=== PATIENT | male | born 1975 | race Caucasian/White ===

== ENCOUNTER 2020-06-10 11:51 | Emergency (ER) | payer SELFPAY ==
[2020-06-10 12:03] VITALS: BP 120/77; PULSE 76; TEMP 98; BMI 24.0
[2020-06-10] MEDS ORDERED: ACETAMINOPHEN 325 MG TABLET (FP) PO ONE (12:26)
[2020-06-10] MEDS ORDERED: LIDOCAINE 5% TOPICAL PATCH TP ONE (12:27)
[2020-06-10] MEDS ORDERED: LIDOCAINE 5% TOPICAL PATCH ONE (12:35)
[2020-06-10] MEDS ORDERED: ACETAMINOPHEN 325 MG TABLET (FP) ONE (12:35)
== END 2020-06-10 14:10 | disposition home or self-care (01) ==
LOC: JERFT 11:51
DX: S93.412A Sprain of calcaneofibular ligament of left ankle, initial encounter (principal); R07.82 Intercostal pain; W19.XXXA Unspecified fall, initial encounter
CPT/HCPCS: 71046-TC-FY; 71101-TC-LT-FY; 73610-TC-LT-FY; 73630-TC-LT; 93005; 93010; 99285-25

== ENCOUNTER 2021-12-30 09:15 | Emergency (ER) | payer OTHER ==
[2021-12-30 09:29] VITALS: BMI 28.3
[2021-12-30] MEDS ORDERED: ACETAMINOPHEN 1000 MG/100 ML BAG IVPB ONE (09:54)
[2021-12-30] MEDS ORDERED: CEFAZOLIN 2 GM in DEXTROSE 5%-WATER - 50 ML IVPB ONE (09:55)
[2021-12-30] MEDS ORDERED: ACETAMINOPHEN INJECTION 100 ML IVPB ONE (10:21)
[2021-12-30] MEDS ORDERED: ceFAZolin SODIUM 1 GM VIAL ONE (10:21)
[2021-12-30] MEDS ORDERED: SODIUM CHLORIDE 0.9% 500 ML INFUS.BAG IV ONE (11:08)
[2021-12-30 13:43] VITALS: BP 114/81; PULSE 67; TEMP 98.1
== END 2021-12-30 13:30 | disposition short-term general hospital (02) ==
LOC: JER 09:15
PROC: 3E0333Z Introduction of Anti-inflammatory into Peripheral Vein, Percutaneous Approach (ICD-10-PCS; principal; 2021-12-30)
PROC: 3E03329 Introduction of Other Anti-infective into Peripheral Vein, Percutaneous Approach (ICD-10-PCS; 2021-12-30)
DX: S62.605B Fracture of unspecified phalanx of left ring finger, initial encounter for open fracture (principal); W29.8XXA Contact with other powered hand tools and household machinery, initial encounter; Y93.H2 Activity, gardening and landscaping
CPT/HCPCS: 0241U-QW; 73140-TC-LT-FY; 99284-25

== ENCOUNTER 2024-02-22 08:53 | Emergency (ER) | payer SELFPAY ==
[2024-02-22 09:02] VITALS: BP 135/84; PULSE 81; RESP 18; TEMP 97.8; BMI 28.3
== END 2024-02-22 14:20 | disposition home or self-care (01) ==
LOC: JERFT 08:53
DX: S02.2XXA Fracture of nasal bones, initial encounter for closed fracture (principal); R04.0 Epistaxis; W20.8XXA Other cause of strike by thrown, projected or falling object, initial encounter
CPT/HCPCS: 70450-TC; 70486-TC; 99284-25

== ENCOUNTER 2024-06-04 01:12 | Inpatient (IN) | payer OTHER ==
[2024-06-04] MEDS ORDERED: FAMOTIDINE 20 MG TABLET ONE (02:35)
[2024-06-04] MEDS ORDERED: POLYETHYLENE GLYCOL (HEALTHYLAX) 3350 17 GM PACKET ONE (02:35)
[2024-06-04] MEDS ORDERED: LACTULOSE 20 GM/30 ML UDC (FOR ORAL USE ONLY) ONE (02:36)
[2024-06-04] MEDS ORDERED: MAG HYDROX/AL HYDROX/SIMETH 30 ML UNIT-DOSE CUP ONE (02:36)
[2024-06-04] MEDS: MAG HYDROX/AL HYDROX/SIMETH 30 ML UNIT-DOSE CUP PO ONE (02:50)
[2024-06-04] MEDS: LACTULOSE 20 GM/30 ML UDC (FOR ORAL USE ONLY) PO ONE (02:50)
[2024-06-04] MEDS: FAMOTIDINE 20 MG TABLET PO ONE (02:50)
[2024-06-04] MEDS: POLYETHYLENE GLYCOL (HEALTHYLAX) 3350 17 GM PACKET PO SCH (02:50)
[2024-06-04] MEDS: MINERAL OIL ENEMA 133 ML ENEMA RC ONE (02:50)
[2024-06-04 05:23] LABS: INR 1.18 (0.83-1.09); PROTHROMBIN TIME (PATIENT) 13.5 SEC (9.7-13.0)
[2024-06-04 05:31] LABS: HEMATOCRIT 34.4 % (35.4-49); HEMOGLOBIN 11.4 GM/dL (11.7-16.9); MCH 31.3 pg (25.7-33.7); MCHC 33.2 g/dl (32.0-35.9); MEAN CELL VOLUME 94.4 fl (80-96); MEAN PLT VOLUME 8.8 fl (7.5-11.1); PLATELET COUNT 424 10^3/uL (134-434); RBC 3.64 M/mm3 (4.00-5.60); RDW 13.8 % (11.9-15.9); WHITE BLOOD COUNT 5.2 K/mm3 (4.0-10.0)
[2024-06-04 06:22] LABS: POTASSIUM 4.1 mmol/L (3.5-5.1)
[2024-06-04 06:25] LABS: BLOOD UREA NITROGEN 5.8 mg/dL (7-18); CALCIUM 8.9 mg/dL (8.5-10.1)
[2024-06-04 06:26] LABS: ALBUMIN 2.6 g/dl (3.4-5.0)
[2024-06-04 06:29] LABS: CREATININE 0.6 mg/dL (0.55-1.3)
[2024-06-04 06:30] LABS: BILIRUBIN,TOTAL 0.7 mg/dL (0.2-1); TOT PROT 7.4 g/dl (6.4-8.2)
[2024-06-04 06:44] LABS: HIV INTERPRETATION NEGATIVE (NEGATIVE)
[2024-06-04] MEDS ORDERED: ACETAMINOPHEN INJECTION 100 ML ONE (11:02)
[2024-06-04] MEDS: ACETAMINOPHEN 1000 MG/100 ML BAG IVPB ONE (11:21)
[2024-06-04] MEDS: CEFOTAXIME SODIUM 2,000 MG in DEXTROSE 5%-WATER - 50 ML IVPB ONE (11:47)
[2024-06-04] MEDS ORDERED: CEFTRIAXONE 2 GM/100 ML BAG IVPB ONE (11:49)
[2024-06-04] MEDS: CEFTRIAXONE 2 GM in DEXTROSE 5%-WATER - 100 ML IVPB ONE (12:00)
[2024-06-04] MEDS ORDERED: LORazepam 2 MG/ML SDV VIAL IVPUSH PRN (12:57)
[2024-06-04] MEDS ORDERED: PIPERACILLIN/TAZOB 3.375 GM 3.375 GM/50 ML BAG IVPB ONE (14:19)
[2024-06-04] MEDS: PIPERACILLIN/TAZOB 3.375 GM 50 ML IVPB SCH (14:26)
[2024-06-04] MEDS ORDERED: VANCOMYCIN 1 GRAM (PRE-DOCKED) 1,000 MG/250 ML BAG IVPB ONE (15:08)
[2024-06-04] MEDS: LACTATED RINGERS SOLUTION 1,000 ML/1,000 ML INFUS.BAG IV SCH (15:18)
[2024-06-04] MEDS: VANCOMYCIN 1 GRAM (PRE-DOCKED) 1,000 MG/200 ML BAG IVPB ONE (15:18)
[2024-06-05 09:24] LABS: HEMATOCRIT 33.7 % (35.4-49); HEMOGLOBIN 11.2 GM/dL (11.7-16.9); MCH 31.6 pg (25.7-33.7); MCHC 33.4 g/dl (32.0-35.9); MEAN CELL VOLUME 94.7 fl (80-96); MEAN PLT VOLUME 8.5 fl (7.5-11.1); PLATELET COUNT 491 10^3/uL (134-434); RBC 3.55 M/mm3 (4.00-5.60); RDW 13.5 % (11.9-15.9); WHITE BLOOD COUNT 5.1 K/mm3 (4.0-10.0)
[2024-06-05 09:45] LABS: POTASSIUM 4.1 mmol/L (3.5-5.1)
[2024-06-05 09:47] LABS: CALCIUM 8.8 mg/dL (8.5-10.1)
[2024-06-05 09:48] LABS: ALBUMIN 2.1 g/dl (3.4-5.0); BLOOD UREA NITROGEN 5.5 mg/dL (7-18)
[2024-06-05 09:51] LABS: CREATININE 0.7 mg/dL (0.55-1.3)
[2024-06-05 09:52] LABS: BILIRUBIN,TOTAL 0.5 mg/dL (0.2-1); TOT PROT 6.3 g/dl (6.4-8.2)
[2024-06-05 10:43] LABS: ANISOCYTOSIS 0; MACROCYTOSIS 0; TARGET CELLS 1+
[2024-06-05] MEDS: HEPARIN NA (PORCINE) 5,000 UNITS/ML 1ML VIAL SQ SCH (11:05)
[2024-06-05] MEDS: PANTOPRAZOLE SODIUM 40 MG VIAL IVPUSH SCH (11:05)
[2024-06-05] MEDS: THIAMINE HCL 200 MG/2 ML VIAL IVPB SCH (11:05)
[2024-06-05] MEDS: FOLIC ACID 1 MG TABLET (FP) PO SCH (11:06)
[2024-06-05 14:19] LABS: EPI CELLS 20 /uL (0-25.1); HYALINE CASTS 1 /uL (0-3.1); URINE APPEARANCE CLEAR; URINE BACTERIA 6 /uL (0-1359); URINE BILIRUBIN 1+ (NEGATIVE); URINE COLOR DK YELLOW; URINE GLUCOSE (UA) NEGATIVE (NEGATIVE); URINE KETONE 2+ (NEGATIVE); URINE LEUK ESTERASE TRACE (NEGATIVE); URINE NITRITE NEGATIVE (NEGATIVE); URINE PROTEIN TRACE (NEGATIVE); URINE RBC 19 /uL (0-23.9); URINE WBC 22 /uL (0-25.8)
[2024-06-05 14:28] LABS: COCAINE, UR NEGATIVE (NEGATIVE); METHADONE, UR NEGATIVE (NEGATIVE); URINE BARBITURATES NEGATIVE (NEGATIVE); URINE BENZODIAZEPINES NEGATIVE (NEGATIVE)
[2024-06-05 14:29] LABS: OPIATES, URI NEGATIVE (NEGATIVE); PHENCYCLIDINE,URINE NEGATIVE (NEGATIVE)
[2024-06-05 14:32] LABS: URINE AMPHETAMINES NEGATIVE (NEGATIVE)
[2024-06-05] MEDS: MULTIVIT INJ. ADULT COMBO WITH VIT K 1 COMBO 10 ML VIAL IV SCH (14:48)
[2024-06-05] MEDS ORDERED: ONDANSETRON 4 MG/2 ML VIAL IVPUSH PRN (17:05)
[2024-06-05] MEDS: PIPERACILLIN/TAZOB 3.375 GM 3.375 GM in DEXTROSE 5%-WATER - 50 ML IVPB SCH (17:26)
[2024-06-05] MEDS: CEFTRIAXONE 2 GM in DEXTROSE 5%-WATER 100 ML IVPB SCH (18:05)
[2024-06-06] MEDS: MULTIVITAMINS (DAILY MVI) TABLET (FP) PO SCH (09:24)
[2024-06-06] MEDS: POLYETHYLENE GLYCOL (HEALTHYLAX) 3350 17 GM PACKET PO SCH (09:25)
[2024-06-06 09:56] LABS: BASO % 1.3 % (0-2.0); EOS % 1.1 % (0-4.5); HEMATOCRIT 35.3 % (35.4-49); HEMOGLOBIN 11.9 GM/dL (11.7-16.9); LYMPH % 7.5 % (8-40); MCH 31.5 pg (25.7-33.7); MCHC 33.7 g/dl (32.0-35.9); MEAN CELL VOLUME 93.6 fl (80-96); MEAN PLT VOLUME 8.8 fl (7.5-11.1); MONO % 14.6 % (3.8-10.2); NEUT % 75.5 % (42.8-82.8); PLATELET COUNT 560 10^3/uL (134-434); RBC 3.77 M/mm3 (4.00-5.60); RDW 14.1 % (11.9-15.9); WHITE BLOOD COUNT 6.2 K/mm3 (4.0-10.0)
[2024-06-06 10:03] LABS: POTASSIUM 4.5 mmol/L (3.5-5.1)
[2024-06-06 10:08] LABS: ALBUMIN 2.3 g/dl (3.4-5.0); BLOOD UREA NITROGEN 6.5 mg/dL (7-18); CALCIUM 8.6 mg/dL (8.5-10.1)
[2024-06-06 10:11] LABS: CREATININE 0.7 mg/dL (0.55-1.3)
[2024-06-06 10:13] LABS: BILIRUBIN,TOTAL 0.5 mg/dL (0.2-1)
[2024-06-06 10:14] LABS: TOT PROT 6.8 g/dl (6.4-8.2)
[2024-06-06 14:54] LABS: BF WBC & OTHER NUCLEATED CELLS 735 /mm3
[2024-06-06 14:56] LABS: BODY FLUID MACROPHAGES 24 %
[2024-06-06 15:42] VITALS: BMI 26.2
[2024-06-06] MEDS: ACETAMINOPHEN 325 MG TABLET (FP) PO PRN (17:38)
[2024-06-07] MEDS: metroNIDAZOLE 250 MG TABLET PO SCH (06:12)
[2024-06-07 09:49] LABS: HEMATOCRIT 35.7 % (35.4-49); HEMOGLOBIN 12.1 GM/dL (11.7-16.9); MCH 31.7 pg (25.7-33.7); MCHC 33.9 g/dl (32.0-35.9); MEAN CELL VOLUME 93.4 fl (80-96); MEAN PLT VOLUME 8.8 fl (7.5-11.1); PLATELET COUNT 547 10^3/uL (134-434); RBC 3.82 M/mm3 (4.00-5.60); RDW 14.2 % (11.9-15.9); WHITE BLOOD COUNT 6.5 K/mm3 (4.0-10.0)
[2024-06-07 10:09] LABS: POTASSIUM 3.9 mmol/L (3.5-5.1)
[2024-06-07 10:11] LABS: CALCIUM 8.6 mg/dL (8.5-10.1)
[2024-06-07 10:12] LABS: BLOOD UREA NITROGEN 5.6 mg/dL (7-18); MAGNESIUM 1.8 mg/dL (1.8-2.4)
[2024-06-07 10:15] LABS: CREATININE 0.6 mg/dL (0.55-1.3)
[2024-06-07 10:16] LABS: BILIRUBIN,TOTAL 0.4 mg/dL (0.2-1); TOT PROT 6.2 g/dl (6.4-8.2)
[2024-06-07] MEDS: PANTOPRAZOLE 40 MG TABLET PO SCH (10:32)
[2024-06-07] MEDS: THIAMINE 100 MG TABLET PO SCH (10:32)
[2024-06-07 14:08] LABS: BODY FLUID ALBUMIN 2.3 g/dL (Not Estab.)
[2024-06-07] MEDS ORDERED: LORazepam 0.5 MG TABLET PO PRN (19:33)
[2024-06-07] MEDS: LORazepam 0.5 MG TABLET PO SCH (19:35)
[2024-06-08] MEDS: PIPERACILLIN/TAZOB 3.375 GM 50 ML IVPB SCH (10:51)
[2024-06-09] MEDS: metoPROLOL SUCCINATE 25 MG TAB.SR.24H (FP) PO SCH (09:15)
[2024-06-09] MEDS ORDERED: LISINOPRIL 5 MG TABLET PO SCH (10:00)
[2024-06-09] MEDS ORDERED: SACUBITRIL/VALSARTAN 24 MG-26 MG TABLET PO SCH (22:00)
[2024-06-10 09:42] LABS: HEMATOCRIT 34.3 % (35.4-49); HEMOGLOBIN 11.5 GM/dL (11.7-16.9); MCH 30.8 pg (25.7-33.7); MCHC 33.5 g/dl (32.0-35.9); MEAN PLT VOLUME 8.7 fl (7.5-11.1); PLATELET COUNT 515 10^3/uL (134-434); RBC 3.73 M/mm3 (4.00-5.60); RDW 14.3 % (11.9-15.9); WHITE BLOOD COUNT 6.2 K/mm3 (4.0-10.0)
[2024-06-10 10:01] LABS: POTASSIUM 4.6 mmol/L (3.5-5.1)
[2024-06-10 10:05] LABS: ALBUMIN 2.1 g/dl (3.4-5.0); BLOOD UREA NITROGEN 7.5 mg/dL (7-18); CALCIUM 8.7 mg/dL (8.5-10.1)
[2024-06-10 10:08] LABS: CREATININE 0.7 mg/dL (0.55-1.3)
[2024-06-10 10:09] LABS: BILIRUBIN,TOTAL 0.5 mg/dL (0.2-1); TOT PROT 6.3 g/dl (6.4-8.2)
[2024-06-10] MEDS: SACUBITRIL/VALSARTAN 24 MG-26 MG TABLET PO SCH (22:20)
[2024-06-12 09:50] LABS: HEMATOCRIT 35.8 % (35.4-49); HEMOGLOBIN 11.8 GM/dL (11.7-16.9); MCHC 32.9 g/dl (32.0-35.9); MEAN CELL VOLUME 94.1 fl (80-96); PLATELET COUNT 440 10^3/uL (134-434); RBC 3.81 M/mm3 (4.00-5.60); RDW 14.3 % (11.9-15.9); WHITE BLOOD COUNT 8.4 K/mm3 (4.0-10.0)
[2024-06-12 10:09] LABS: POTASSIUM 4.8 mmol/L (3.5-5.1)
[2024-06-12 10:14] LABS: ALBUMIN 2.1 g/dl (3.4-5.0); CALCIUM 8.6 mg/dL (8.5-10.1)
[2024-06-12 10:15] LABS: BLOOD UREA NITROGEN 8.4 mg/dL (7-18)
[2024-06-12 10:18] LABS: CREATININE 0.7 mg/dL (0.55-1.3)
[2024-06-12 10:19] LABS: BILIRUBIN,TOTAL 0.5 mg/dL (0.2-1); TOT PROT 6.7 g/dl (6.4-8.2)
[2024-06-13 17:15] LABS: BF WBC & OTHER NUCLEATED CELLS 415 /mm3; BODY FLUID MONOCYTE 6 %
[2024-06-14 15:21] LABS: EOS % 0.8 % (0-4.5); HEMATOCRIT 33.4 % (35.4-49); HEMOGLOBIN 11.2 GM/dL (11.7-16.9); LYMPH % 8.9 % (8-40); MCHC 33.7 g/dl (32.0-35.9); MEAN CELL VOLUME 91.9 fl (80-96); MEAN PLT VOLUME 8.4 fl (7.5-11.1); MONO % 16.9 % (3.8-10.2); NEUT % 71.4 % (42.8-82.8); PLATELET COUNT 373 10^3/uL (134-434); RBC 3.63 M/mm3 (4.00-5.60); RDW 14.2 % (11.9-15.9); WHITE BLOOD COUNT 6.6 K/mm3 (4.0-10.0)
[2024-06-14 15:40] LABS: POTASSIUM 4.5 mmol/L (3.5-5.1)
[2024-06-14 15:41] LABS: CALCIUM 8.2 mg/dL (8.5-10.1)
[2024-06-14 15:42] LABS: BLOOD UREA NITROGEN 10.1 mg/dL (7-18)
[2024-06-14 15:45] LABS: CREATININE 0.8 mg/dL (0.55-1.3)
[2024-06-14 15:46] LABS: BILIRUBIN,TOTAL 0.4 mg/dL (0.2-1)
[2024-06-14 15:47] LABS: TOT PROT 6.3 g/dl (6.4-8.2)
[2024-06-14 15:50] LABS: INR 1.32 (0.83-1.09); PROTHROMBIN TIME (PATIENT) 14.8 SEC (9.7-13.0)
[2024-06-15] MEDS: ACETAMINOPHEN 325 MG TABLET (FP) PO PRN (03:25)
[2024-06-15 15:09] LABS: BODY FLUID ALBUMIN 2.1 g/dL (Not Estab.)
[2024-06-16 11:33] LABS: POTASSIUM 4.5 mmol/L (3.5-5.1)
[2024-06-16 11:35] LABS: CALCIUM 9.1 mg/dL (8.5-10.1)
[2024-06-16 11:36] LABS: ALBUMIN 2.1 g/dl (3.4-5.0); BLOOD UREA NITROGEN 9.4 mg/dL (7-18)
[2024-06-16 11:39] LABS: CREATININE 0.7 mg/dL (0.55-1.3)
[2024-06-16 11:40] LABS: BILIRUBIN,TOTAL 0.4 mg/dL (0.2-1)
[2024-06-16 11:41] LABS: TOT PROT 6.8 g/dl (6.4-8.2)
[2024-06-17 08:36] LABS: ALBUMIN 2.1 g/dl (3.4-5.0); BLOOD UREA NITROGEN 8.9 mg/dL (7-18); CALCIUM 8.9 mg/dL (8.5-10.1); MAGNESIUM 1.8 mg/dL (1.8-2.4); POTASSIUM 4.5 mmol/L (3.5-5.1)
[2024-06-17 08:39] LABS: CREATININE 0.6 mg/dL (0.55-1.3)
[2024-06-17 08:40] LABS: BILIRUBIN,TOTAL 0.6 mg/dL (0.2-1)
[2024-06-17 08:41] LABS: TOT PROT 6.7 g/dl (6.4-8.2)
[2024-06-17 10:58] LABS: HEMATOCRIT 34.1 % (35.4-49); HEMOGLOBIN 11.2 GM/dL (11.7-16.9); MCH 30.5 pg (25.7-33.7); MCHC 32.8 g/dl (32.0-35.9); MEAN CELL VOLUME 92.9 fl (80-96); PLATELET COUNT 364 10^3/uL (134-434); RBC 3.67 M/mm3 (4.00-5.60); RDW 14.5 % (11.9-15.9); WHITE BLOOD COUNT 7.3 K/mm3 (4.0-10.0)
[2024-06-19] MEDS: PEG 3350/NA SULF BICARB CL/KCL 4000 ML SOLN.RECON PO ONE (16:52)
[2024-06-21 13:35] LABS: PH,URINE 6.5 (5.0-8.0); URINE APPEARANCE CLEAR; URINE BILIRUBIN NEGATIVE (NEGATIVE); URINE COLOR DK YELLOW; URINE GLUCOSE (UA) NEGATIVE (NEGATIVE); URINE KETONE NEGATIVE (NEGATIVE); URINE LEUK ESTERASE NEGATIVE (NEGATIVE); URINE NITRITE NEGATIVE (NEGATIVE); URINE PROTEIN TRACE (NEGATIVE)
[2024-06-21] MEDS ORDERED: MIDAZOLAM HCL 2 MG/2 ML SINGLE DOSE VIAL ONE (15:19)
[2024-06-21] MEDS ORDERED: FENTANYL CITRATE/PF 50 MCG/ML VIAL ONE (15:19)
[2024-06-21 18:07] LABS: CYCLIC CITRULLINE PEPTIDE AB 10 units (0-19)
[2024-06-22 09:22] LABS: HEMATOCRIT 29.3 % (35.4-49); HEMOGLOBIN 9.6 GM/dL (11.7-16.9); MCH 30.6 pg (25.7-33.7); MCHC 32.9 g/dl (32.0-35.9); MEAN CELL VOLUME 93.1 fl (80-96); MEAN PLT VOLUME 8.9 fl (7.5-11.1); PLATELET COUNT 298 10^3/uL (134-434); RBC 3.15 M/mm3 (4.00-5.60); RDW 14.4 % (11.9-15.9); WHITE BLOOD COUNT 6.6 K/mm3 (4.0-10.0)
[2024-06-22 09:43] LABS: POTASSIUM 4.2 mmol/L (3.5-5.1)
[2024-06-22 10:08] LABS: CALCIUM 9.4 mg/dL (8.5-10.1)
[2024-06-22 10:09] LABS: ALBUMIN 2.1 g/dl (3.4-5.0); BLOOD UREA NITROGEN 5.8 mg/dL (7-18)
[2024-06-22 10:10] LABS: CREATININE 0.7 mg/dL (0.55-1.3)
[2024-06-22 10:11] LABS: BILIRUBIN,TOTAL 0.5 mg/dL (0.2-1); TOT PROT 6.7 g/dl (6.4-8.2)
[2024-06-22 16:08] LABS: C-ANCA <1:20 titer (Neg:<1:20)
[2024-06-22] MEDS: AMINO ACIDS/PROTEIN HYDROLYS 30 ML LIQUID.PKT PO SCH (16:49)
[2024-06-24 09:00] LABS: EOS % 1.3 % (0-4.5); HEMATOCRIT 34.8 % (35.4-49); HEMOGLOBIN 11.4 GM/dL (11.7-16.9); LYMPH % 8.7 % (8-40); MCH 30.3 pg (25.7-33.7); MCHC 32.8 g/dl (32.0-35.9); MEAN CELL VOLUME 92.3 fl (80-96); MEAN PLT VOLUME 8.9 fl (7.5-11.1); MONO % 16.4 % (3.8-10.2); NEUT % 72.6 % (42.8-82.8); PLATELET COUNT 282 10^3/uL (134-434); RBC 3.77 M/mm3 (4.00-5.60); WHITE BLOOD COUNT 7.2 K/mm3 (4.0-10.0)
[2024-06-24 09:13] LABS: BLOOD UREA NITROGEN 8.8 mg/dL (7-18); CALCIUM 9.6 mg/dL (8.5-10.1)
[2024-06-24 09:15] LABS: ALBUMIN 2.3 g/dl (3.4-5.0)
[2024-06-24 09:17] LABS: CREATININE 0.5 mg/dL (0.55-1.3)
[2024-06-24 09:18] LABS: BILIRUBIN,TOTAL 0.4 mg/dL (0.2-1); TOT PROT 7.4 g/dl (6.4-8.2)
[2024-06-24 09:28] VITALS: BP 97/67; PULSE 88; RESP 20; TEMP 98.6
== END 2024-06-24 15:18 | disposition home or self-care (01) | DRG 248 ==
LOC: JER 01:12 → JERBED 12:41 → J8W 15:43
PROVIDERS: ADMIT Family Medicine; ATTEND Family Medicine
PROC: 0W9G3ZZ Drainage of Peritoneal Cavity, Percutaneous Approach (ICD-10-PCS; principal; 2024-06-06)
PROC: 0W9G3ZZ Drainage of Peritoneal Cavity, Percutaneous Approach (ICD-10-PCS; 2024-06-13)
PROC: 0DBW3ZX Excision of Peritoneum, Percutaneous Approach, Diagnostic (ICD-10-PCS; 2024-06-21)
DX: K65.2 Spontaneous bacterial peritonitis (principal); I50.22 Chronic systolic (congestive) heart failure; E87.1 Hypo-osmolality and hyponatremia; K70.31 Alcoholic cirrhosis of liver with ascites; F10.10 Alcohol abuse, uncomplicated; K59.00 Constipation, unspecified; F17.200 Nicotine dependence, unspecified, uncomplicated; I25.5 Ischemic cardiomyopathy
CPT/HCPCS: 0241U-QW; 36415; 49180; 71045-TC-FY; 71260-TC; 73110-TC-LT-FY; 73110-TC-RT-FY; 73130-TC-LT-FY; 73130-TC-RT-FY; 74019-TC-FY; 74177-TC; 76705-TC; 76942-TC; 77012-TC; 80053; 80307; 81003; 82042; 82140; 82150; 82436; 82465; 82945; 83520; 83605; 83615; 83690; 83735; 83930; 83935; 83986; 84133; 84157; 84300; 84478; 85025; 85027; 85610; 85651; 86038; 86140; 86160; 86200; 86225; 86256; 86431; 86480; 86803; 86850; 86880; 86900; 86901; 87040; 87070; 87075; 87086; 87102; 87116; 87205; 87206; 87210; 87389; 87635; 88108; 88305-TC; 88312-TC; 93005; 93010; 93306-TC; 97116-GP; 97161-GP; 99285-25; J0131; J1644; Q9967

== ENCOUNTER 2024-07-06 16:54 | Inpatient (IN) | payer OTHER ==
[2024-07-06 17:16] VITALS: BMI 24.0
[2024-07-06 18:48] LABS: EOS % 2.5 % (0-4.5); HEMATOCRIT 32.2 % (35.4-49); HEMOGLOBIN 10.5 GM/dL (11.7-16.9); LYMPH % 32.7 % (8-40); MCH 29.4 pg (25.7-33.7); MCHC 32.5 g/dl (32.0-35.9); MEAN CELL VOLUME 90.5 fl (80-96); MEAN PLT VOLUME 8.1 fl (7.5-11.1); MONO % 0.9 % (3.8-10.2); NEUT % 63.9 % (42.8-82.8); PLATELET COUNT 331 10^3/uL (134-434); RBC 3.56 M/mm3 (4.00-5.60); RDW 15.1 % (11.9-15.9); WHITE BLOOD COUNT 5.6 K/mm3 (4.0-10.0)
[2024-07-06 18:56] LABS: INR 1.23 (0.83-1.09); PROTHROMBIN TIME (PATIENT) 13.8 SEC (9.7-13.0)
[2024-07-06 18:59] LABS: ACTIVATED PTT 34.5 SECONDS (25.2-36.5)
[2024-07-06 19:06] LABS: POTASSIUM 4.1 mmol/L (3.5-5.1)
[2024-07-06 19:08] LABS: CALCIUM 10.3 mg/dL (8.5-10.1)
[2024-07-06 19:10] LABS: ALBUMIN 2.4 g/dl (3.4-5.0); BLOOD UREA NITROGEN 10.4 mg/dL (7-18); MAGNESIUM 1.8 mg/dL (1.8-2.4)
[2024-07-06 19:12] LABS: CREATININE 0.8 mg/dL (0.55-1.3); PHOSPHOROUS 3.9 mg/dL (2.5-4.9)
[2024-07-06 19:13] LABS: BILIRUBIN,TOTAL 0.3 mg/dL (0.2-1)
[2024-07-06 20:03] LABS: HIV INTERPRETATION NEGATIVE (NEGATIVE)
[2024-07-06] MEDS ORDERED: FAMOTIDINE 20 MG/50 ML IVPB 20 MG/50 ML MG IVPB ONE (20:15)
[2024-07-06] MEDS ORDERED: MAG HYDROX/AL HYDROX/SIMETH 30 ML UNIT-DOSE CUP ONE (20:15)
[2024-07-06] MEDS: MAG HYDROX/AL HYDROX/SIMETH 30 ML UNIT-DOSE CUP PO ONE (20:18)
[2024-07-06] MEDS: FAMOTIDINE 20 MG/50 ML IVPB 20 MG/50 ML MG IVPB ONE (20:18)
[2024-07-06] MEDS ORDERED: CEFTRIAXONE 1 G/50 ML PREMIX 50 ML IVPB ONE (22:39)
[2024-07-07] MEDS ORDERED: DOCUSATE SODIUM 100 MG CAPSULE (FP) PO PRN (00:05)
[2024-07-07 00:23] LABS: URINE APPEARANCE CLEAR; URINE COLOR YELLOW
[2024-07-07 00:24] LABS: URINE BILIRUBIN NEGATIVE (NEGATIVE); URINE GLUCOSE (UA) NEGATIVE (NEGATIVE); URINE KETONE NEGATIVE (NEGATIVE)
[2024-07-07 00:25] LABS: PH,URINE 7.5 (5.0-8.0); URINE LEUK ESTERASE NEGATIVE (NEGATIVE); URINE NITRITE NEGATIVE (NEGATIVE); URINE PROTEIN NEGATIVE (NEGATIVE); URINE UROBILINOGEN 0.2 mg/dL (0.2-1.0)
[2024-07-07] MEDS: CEFTRIAXONE 1 G/50 ML PREMIX 50 ML IVPB SCH (10:14)
[2024-07-08 09:13] LABS: BASO % 1.6 % (0-2.0); EOS % 1.3 % (0-4.5); HEMATOCRIT 36.2 % (35.4-49); HEMOGLOBIN 12.1 GM/dL (11.7-16.9); LYMPH % 10.4 % (8-40); MCHC 33.3 g/dl (32.0-35.9); MEAN CELL VOLUME 90.1 fl (80-96); MEAN PLT VOLUME 8.2 fl (7.5-11.1); MONO % 14.4 % (3.8-10.2); NEUT % 72.3 % (42.8-82.8); PLATELET COUNT 347 10^3/uL (134-434); RBC 4.02 M/mm3 (4.00-5.60)
[2024-07-08 09:34] LABS: POTASSIUM 4.1 mmol/L (3.5-5.1)
[2024-07-08 09:41] LABS: CALCIUM 9.6 mg/dL (8.5-10.1)
[2024-07-08 09:42] LABS: ALBUMIN 2.4 g/dl (3.4-5.0); BLOOD UREA NITROGEN 13.1 mg/dL (7-18)
[2024-07-08 09:44] LABS: CREATININE 0.9 mg/dL (0.55-1.3)
[2024-07-08 09:45] LABS: BILIRUBIN,TOTAL 0.4 mg/dL (0.2-1)
[2024-07-08 09:46] LABS: TOT PROT 8.3 g/dl (6.4-8.2)
[2024-07-08] MEDS: POLYETHYLENE GLYCOL (HEALTHYLAX) 3350 17 GM PACKET PO SCH (09:54)
[2024-07-08] MEDS ORDERED: SPIRONOLACTONE 25 MG TABLET PO SCH (10:00)
[2024-07-08] MEDS ORDERED: FUROSEMIDE 40 MG TABLET (FP) PO SCH (10:00)
[2024-07-08 12:44] LABS: BF WBC & OTHER NUCLEATED CELLS 1200 /mm3
[2024-07-08 13:20] LABS: BODY FLUID MACROPHAGES 15 %
[2024-07-08] MEDS: CEFTRIAXONE 2 GM-D5W BAG 2 GM/50 ML BAG IVPB SCH (14:34)
[2024-07-09] MEDS: ACETAMINOPHEN 325 MG TABLET (FP) PO ONE (03:57)
[2024-07-09 07:12] LABS: POTASSIUM 3.9 mmol/L (3.5-5.1)
[2024-07-09 07:19] LABS: CALCIUM 9.6 mg/dL (8.5-10.1)
[2024-07-09 07:20] LABS: ALBUMIN 2.4 g/dl (3.4-5.0); BLOOD UREA NITROGEN 11.7 mg/dL (7-18)
[2024-07-09 07:23] LABS: CREATININE 0.7 mg/dL (0.55-1.3)
[2024-07-09 07:24] LABS: BILIRUBIN,TOTAL 0.4 mg/dL (0.2-1); TOT PROT 7.9 g/dl (6.4-8.2)
[2024-07-10 09:08] LABS: POTASSIUM 4.3 mmol/L (3.5-5.1)
[2024-07-10 09:12] LABS: CALCIUM 9.6 mg/dL (8.5-10.1)
[2024-07-10 09:13] LABS: ALBUMIN 2.6 g/dl (3.4-5.0); BLOOD UREA NITROGEN 8.1 mg/dL (7-18)
[2024-07-10 09:16] LABS: CREATININE 0.7 mg/dL (0.55-1.3)
[2024-07-10 09:17] LABS: BILIRUBIN,TOTAL 0.4 mg/dL (0.2-1)
[2024-07-10 09:19] LABS: TOT PROT 8.5 g/dl (6.4-8.2)
[2024-07-11 09:31] LABS: BASO % 1.3 % (0-2.0); EOS % 1.5 % (0-4.5); HEMOGLOBIN 12.1 GM/dL (11.7-16.9); LYMPH % 12.2 % (8-40); MCH 29.9 pg (25.7-33.7); MCHC 32.8 g/dl (32.0-35.9); MEAN CELL VOLUME 91.2 fl (80-96); MEAN PLT VOLUME 9.2 fl (7.5-11.1); MONO % 15.5 % (3.8-10.2); NEUT % 69.5 % (42.8-82.8); PLATELET COUNT 363 10^3/uL (134-434); RBC 4.05 M/mm3 (4.00-5.60); RDW 15.3 % (11.9-15.9); WHITE BLOOD COUNT 6.4 K/mm3 (4.0-10.0)
[2024-07-11 09:40] LABS: INR 1.13 (0.83-1.09)
[2024-07-11 09:43] LABS: POTASSIUM 4.6 mmol/L (3.5-5.1)
[2024-07-11 09:45] LABS: ALBUMIN 2.5 g/dl (3.4-5.0); BLOOD UREA NITROGEN 7.5 mg/dL (7-18); CALCIUM 9.8 mg/dL (8.5-10.1)
[2024-07-11 09:48] LABS: CREATININE 0.6 mg/dL (0.55-1.3)
[2024-07-11 09:50] LABS: BILIRUBIN,TOTAL 0.5 mg/dL (0.2-1); TOT PROT 8.6 g/dl (6.4-8.2)
[2024-07-11] MEDS: PEG 3350/NA SULF BICARB CL/KCL 4000 ML SOLN.RECON PO ONE (14:39)
[2024-07-11] MEDS: BISACODYL 5 MG TABLET.DR (FP) PO ONE (17:19)
[2024-07-12 15:09] LABS: BODY FLUID ALBUMIN 2.5 g/dL (Not Estab.)
[2024-07-12 21:26] VITALS: RESP 18
[2024-07-13] MEDS: ACETAMINOPHEN 325 MG TABLET (FP) PO PRN (02:08)
[2024-07-13 09:07] LABS: HEMATOCRIT 35.7 % (35.4-49); MCH 30.4 pg (25.7-33.7); MCHC 33.7 g/dl (32.0-35.9); MEAN CELL VOLUME 90.1 fl (80-96); MEAN PLT VOLUME 8.3 fl (7.5-11.1); PLATELET COUNT 364 10^3/uL (134-434); RBC 3.96 M/mm3 (4.00-5.60); RDW 15.2 % (11.9-15.9); WHITE BLOOD COUNT 4.5 K/mm3 (4.0-10.0)
[2024-07-13 09:25] LABS: POTASSIUM 3.6 mmol/L (3.5-5.1)
[2024-07-13 09:36] LABS: ALBUMIN 2.4 g/dl (3.4-5.0); CALCIUM 9.5 mg/dL (8.5-10.1)
[2024-07-13 09:37] LABS: BILIRUBIN,TOTAL 0.4 mg/dL (0.2-1); BLOOD UREA NITROGEN 6.1 mg/dL (7-18); MAGNESIUM 1.7 mg/dL (1.8-2.4)
[2024-07-13 09:40] LABS: CREATININE 0.8 mg/dL (0.55-1.3)
[2024-07-13] MEDS: POTASSIUM CHLORIDE ORAL LIQUID 20 MEQ/15 ML PO ONE (12:59)
[2024-07-13] MEDS: MELATONIN 1 MG TABLET PO SCH (21:32)
[2024-07-14 05:03] VITALS: BP 106/81; PULSE 68; TEMP 98.8
== END 2024-07-14 10:51 | disposition left against medical advice (07) | DRG 248 ==
LOC: JER 16:54 → JERBED 21:57 → J7W 07-07 03:48 → J6S 07-07 16:22 → OBSVTOIN 07-08 14:23
PROVIDERS: ADMIT Internal Medicine; ATTEND Family Medicine
PROC: 0W9G3ZZ Drainage of Peritoneal Cavity, Percutaneous Approach (ICD-10-PCS; principal; 2024-07-08)
PROC: 0DJ08ZZ Inspection of Upper Intestinal Tract, Via Natural or Artificial Opening Endoscopic (ICD-10-PCS; 2024-07-12)
PROC: 0DJD8ZZ Inspection of Lower Intestinal Tract, Via Natural or Artificial Opening Endoscopic (ICD-10-PCS; 2024-07-12)
PROC: 0DBL8ZX Excision of Transverse Colon, Via Natural or Artificial Opening Endoscopic, Diagnostic (ICD-10-PCS; 2024-07-12)
DX: K65.9 Peritonitis, unspecified (principal); I50.22 Chronic systolic (congestive) heart failure; K70.31 Alcoholic cirrhosis of liver with ascites; F10.10 Alcohol abuse, uncomplicated; K64.8 Other hemorrhoids
CPT/HCPCS: 36415; 71046-TC-FY; 74177-TC; 76942-TC; 80048; 80053; 81003; 82042; 82150; 82465; 82945; 83615; 83735; 83986; 84075; 84100; 84157; 84478; 85025; 85027; 85610; 85730; 86803; 86850; 86900; 86901; 87070; 87075; 87086; 87102; 87116; 87205; 87206; 87210; 87389; 88108; 88305-TC; 93005; 93010; 93306-TC; 99285-25; G0378